=== PATIENT | male | born 1955 | race Caucasian/White ===

== ENCOUNTER 2017-06-07 21:08 | Emergency (ER) | payer OTHER ==
[~2017-06-07] VITALS: Ht 200.7 cm; Wt 95.1 kg
[2017-06-07 21:10] VITALS: BP 148/91; PULSE 80; RESP 20; TEMP 97.7; O2SAT 97
[2017-06-07] MEDS ORDERED: LISI20TA PO (21:26)
[2017-06-07] MEDS ORDERED: TAMS5CAP PO (21:26)
[2017-06-07] MEDS ORDERED: TETANUS/DIPHTHERIA TOXOID ADULT 0.5 ML VIAL IM ONE (21:30)
[2017-06-07] MEDS ORDERED: LIDOCAINE 1%/EPINEPHrine 1:100,000 SOLN 20 ML VIAL INFIL ONE (21:30)
[2017-06-07] MEDS ORDERED: LIDOCAINE 1%/EPINEPHrine 1:100,000 SOLN 50 ML VIAL OTHER ONE (21:45)
--- NOTE | 2017-06-07 21:51 | PD ---
HPI . Laceration Chief Complaint: Laceration/Skin Injury Time Seen by Provider: 21:17 Travel History International Travel<30 days: No Contact w/Intl Traveler<30days: No Traveled to known affect area: No History of Present Illness HPI This patient presents with chief complaint of a laceration to his right thumb. He cut it on a piece of 10. He cannot get it to stop bleeding. He does not know the date of his last tetanus shot. He states that he does not take aspirin or and anticoagulant but he does drink daily. PFSH Past Medical History Diminished Hearing: No Genitourinary: Yes (ENLARGED PROSTATE) Hypertension: Yes Tetanus Vaccination: > 5 Years Influenza Vaccination: No Past Surgical History Eye Surgery: Yes (DETACTED RETNA/CATERACT) Social History Alcohol Use: Yes ("LOTS" DAILY) Tobacco Use: No Substance Use: No Allergies-Medications (Allergen,Severity, Reaction): Coded Allergies: No Known Allergies (Unverified , 06/07/17) Reported Meds & Prescriptions Reported Meds & Active Scripts Active Reported Lisinopril-Hctz 20-12.5 Mg Tab 1 Tab PO DAILY Flomax (Tamsulosin HCl) 0.4 Mg Cap 0.4 Mg PO HS Review of Systems Except as stated in HPI: all other systems reviewed are Neg Physical Exam Narrative GENERAL: Awake and alert and in no acute distress. SKIN: Warm and dry. Laceration on the dorsal aspect of the right thumb near the MCP joint. It is oozing blood. HEAD: Normocephalic/atraumatic. EYES: Pupils are equal. Extraocular movements are intact. NECK: Normal range of motion. Distally RESPIRATORY: Nonlabored respirations. Distally MUSCULOSKELETAL: Atraumatic. NEUROLOGICAL: Nonfocal. PSYCHIATRIC: Appropriate mood and affect. Data Data Last Documented VS Vital Signs Date Time Temp Pulse Resp B/P (MAP) Pulse Ox O2 Delivery O2 Flow Rate FiO2 06/07/17 21:23 (110) 06/07/17 21:10 97.7 80 20 97 Orders Orders Tetanus/Diphtheria Tox Adult (Tetanus/Di (06/07/17 21:30) Lidocai-Epi 1%-1:100,000 Inj (Xylocaine- (06/07/17 21:45) Ed Discharge Order (06/07/17 21:48) MDM Medical Decision Making Medical Screen Exam Complete: Yes Emergency Medical Condition: Yes Differential Diagnosis Differential diagnosis includes but is not limited to skin laceration, muscular laceration, tendon laceration, neurovascular laceration. Narrative Course Patient presents with a laceration at the base of his right thumb. It is not gaping but it will not stop bleeding. Procedures Procedure Narrative LACERATION LOCATION: Right thumb LENGTH: 1 cm NUMBER OF STITCHES/HOLDEN: 3 REPAIR: The area of the laceration was prepped with Betadine and sterilely draped. The laceration was infiltrated with 1% lidocaine with epinephrine. The wound was closed using 5-0 Prolene. This was a single layer repair. A sterile dressing was applied. The patient was advised to keep the dressing clean and dry. Patient tolerated the procedure well. Diagnosis Primary Impression: Thumb laceration Qualified Codes: S61.011A - Laceration without foreign body of right thumb without damage to nail, initial encounter Patient Instructions: General Instructions, Laceration (ED) Departure Forms: Tests/Procedures Additional Instructions: Clean the wound twice daily with soap and water. Apply a thin layer of Neosporin ointment after you wash it. See your doctor in 7 days for suture removal. Seek care sooner for redness, drainage, warmth, unusual pain. Disposition: 01 DISCHARGE HOME Condition: Stable Ayaka Rush MD Jun 07, 2017 21:51
== END 2017-06-07 21:58 | disposition home or self-care (01) ==
LOC: PHEFT 21:08
DX: S61.011A Laceration without foreign body of right thumb without damage to nail, initial encounter (principal); I10 Essential (primary) hypertension; W26.8XXA Contact with other sharp object(s), not elsewhere classified, initial encounter; Z23 Encounter for immunization
CPT/HCPCS: 12001; 90471; 90714